=== PATIENT | female | born 1985 | race Caucasian/White ===

== ENCOUNTER 2016-08-17 16:11 | Emergency (ER) | payer OTHER ==
[~2016-08-17 16:11] MED LIST: PERCOCET1 TA4 PO; PRENATAL1 TAB PO; PROAIR HFA IN; ZOFRAN4 MG PO; [UNRECOGNIZED DRUG - OTHER] PO
--- NOTE | 2016-08-17 18:13 | ED ORDER SUMMARY ---
..... Patient: MARLEN ESCUDERO OrderSheet [facility] VisitID: [id number] [address] [place] [address] 31y, F Registration Date/Time: 08/17/2016 ORDER SHEET Weight: 79.3 kg (stated) Allergies: Amoxicillin GENERAL ORDERS: Foot 3V Right Urgent (17:23 08/17/2016 Debora Pate) ([facility] 17:30 [place]) MEDICATION ORDERS: IV FLUIDS: ORDER SHEET NOTES: [Electronically signed by Ashwini Kaur P.A.-C (18:27 08/17/2016)] [Electronically signed by Tammi Pop R.N. (10:36 08/29/2016)] [Electronically locked/signed by Tammi Pop R.N. (10:36 08/29/2016)]
--- NOTE | 2016-08-17 18:13 | ED ORDER SUMMARY ---
..... Patient: MARLEN ESCUDERO OrderSheet [facility] VisitID: [id number] [address] [place] [address] 31y, F Registration Date/Time: 08/17/2016 ORDER SHEET Weight: 79.3 kg (stated) Allergies: Amoxicillin GENERAL ORDERS: Foot 3V Right Urgent (17:23 08/17/2016 Debora Pate) ([facility] 17:30 [place]) MEDICATION ORDERS: IV FLUIDS: ORDER SHEET NOTES: [Electronically signed by Ashwini Kaur P.A.-C (18:27 08/17/2016)] [Electronically signed by Tammi Pop R.N. (10:36 08/29/2016)] [Electronically locked/signed by Tammi Pop R.N. (10:36 08/29/2016)]
--- NOTE | 2016-08-17 18:13 | ED NURSING NOTES ---
Clinical Report - Nurses [facility] [address] [place] [address] 08/17/2016 16:12 Patient: MARLEN ESCUDERO TRIAGE Triage time 17:25. Acuity: LEVEL 4. Chief Complaint: RIGHT LOWER EXTREMITY PAIN. 17:36 08/17/16. Alert. No acute distress. GERBER COMA SCORE: Crowder Coma Scale: 15- eyes open spontaneously (4); best verbal response- oriented x 4 (5); best motor response- obeys commands (6). --17:36 Nury Chandler R.N. 17:36 08/17/16. BP: 147/92. HR: 81. RR: 16. O2 saturation: 97%. Temp: 98.0 F. Pain level now 4/10. --17:36 Nury Chandler R.N. Weight: 79.3 kg stated. Height/Length: 60 inches Per Patient. BMI: 34.1. --17:32 Nury Chandler R.N. Medications Albuterol Sulfate Inhalation. --17:35 Nury Chandler R.N. Allergies Amoxicillin. --17:35 Nury Chandler R.N. History ( stepped on thumb tac at work (right heel), states she went to Dr ferrer's office and was seen by a nurse, Ivan up to date.). Injury occurred. This occurred (2 days ago). 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 PAST MEDICAL HX: Last normal menstrual period- 08/01. Denies current . SOCIAL HX: Heavy tobacco smoker (cigarette)- less than 1 pack per day. Occasional alcohol use. No drug use. FALL RISK ASSESSMENT: Fall risk assessment completed. No fall risk identified. NUTRITIONAL RISK ASSESSMENT: The nutritional risk assessment revealed no deficiencies. FUNCTIONAL ASSESSMENT: Functional assessment: no impairments noted. LEARNING NEEDS ASSESSMENT: The learning needs assessment revealed no barriers. SKIN INTEGRITY ASSESSMENT: Skin integrity risk assessment completed. No skin integrity risk identified. --17:36 Nury Chandler R.N. PROBLEMS: Gastroesophageal Reflux Disease. Sprain. Herpes Zoster. Cellulitis. Impetigo. Meningitis. Migraine Headache. Ovarian Cyst. Knee Injury. Allergic Reaction. . Tension-Type Headache. Headache. Pyelonephritis. Asthma. Immunizations. LNMP - Last Normal Menstrual Period. --17:35 Nury Chandler R.N. ADDITIONAL SURGERIES: Adenoidectomy. Fracture Repair. R foot. Tonsillectomy. --17:35 Nury Chandler R.N. Interventions ID band on patient. --17:36 Nury Chandler R.N. PHYSICAL ASSESSMENT Ambulatory to room. GENERAL / NEURO / PSYCH: Oriented X 4. Alert. Appears in no acute distress. EXTREMITIES: Extremities exhibit normal ROM. Neuro-vascular status intact to the extremity. No lower extremity edema. Normal gait. Right foot: tenderness and single puncture wound (small). No erythema, swelling or ecchymosis. SKIN: Skin intact. Skin is warm and dry. --17:36 Nury Chandler R.N. NURSING PROGRESS NOTES The plan of care for this patient has been created. Call light placed in reach. Bed placed in lowest position. Brakes of bed on. Patient ready for evaluation- chart flagged. --17:36 Nury Chandler R.N. DISPOSITION / DISCHARGE 18:26 08/17/16. Departure time: 1822. Condition at departure: unchanged and stable. No learning barriers present. Reviewed medication(s) side effects, precautions, dosing and course information. Prescription(s) given to the patient. Patient verbalized understanding. Written instructions provided in Bengali. The patient was discharged by the physician. She was discharged home. She left the Emergency Department ambulatory and via private vehicle. Patient driving. --18:26 Nury Chandler R.N. Locked/Released at 08/29/2016 10:36 by Tammi Pop R.N.
--- NOTE | 2016-08-17 18:13 | ED CLINICAL REPORT ---
Clinical Report - Physicians/Mid Levels [facility] [address] [place] [address] 08/17/2016 16:12 [id number] Time Seen: 17:24 Aug 17 2016. Arrived- By private vehicle. Historian- patient and family. HISTORY OF PRESENT ILLNESS Chief Complaint: Injury to the right foot. The injury happened just prior to arrival. 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 Patient is experiencing mild pain. (Prior to arrival, at work patient stepped on a small tack, tdap < 5 years, pain to area, believes she removed it. Denies any fevers/ chills.). REVIEW OF SYSTEMS The patient sustained a laceration. She complains of pain on weight bearing. All systems otherwise negative, except as recorded above. PAST HISTORY The patient has not had a prior injury to the same area. Tetanus immunization status is up-to-date. SOCIAL HISTORY Smoker- current status unknown. Alcohol use. No drug use. ADDITIONAL NOTES The nursing notes have been reviewed. PHYSICAL EXAM Vital Signs: 08/17/2016 17:36 BP: 147/92. HR: 81. RR: 16. O2 saturation: 97%. Temp: 98.0 F. Appearance: Alert. No acute distress. Head: Head atraumatic. CVS: Normal heart rate and rhythm. Heart sounds normal. Respiratory: No respiratory distress. Breath sounds normal. Skin: Skin warm. (small plantar puncture wound at calcaneous). Extremities: Right heel: of the calcaneus. (small spec of plantar wound noted, no erythema/ ecchyomosis/ bleeding). No tenderness, swelling, ecchymosis or puncture wound. Neuro, Vascular and Tendons: Vascular status intact. Motor intact. Neuro: Oriented X 3. LABS, X-RAYS, AND EKG Rt Foot X-ray: (IMPRESSION: 1. Normal right foot. Electronically Final signed by:Philippe Emery MD 08/17/2016 6:17:04 PM). PROGRESS AND PROCEDURES Course of Care: tdap up to date given plantar region of puncture, will cover with abx, otherwise no signs of fb, no early signs of infeciton. No swelling. Pt stable. TO f/u outpatient. Patient is stable. Symptoms better. Patient/family counseled. Disposition: Discharged. CLINICAL IMPRESSION Single superficial plantar puncture wound to the right foot.No foreign body, infection or injury to toenail. Treatment not delayed. INSTRUCTIONS Protect wound and keep wound area clean. Soak in warm soapy water daily. Apply bacitracin twice daily. You may walk and bear weight as tolerated. Prescription Medications: Bactrim DS 800 mg / 160 mg: Take 1 tablet orally every 12 hours for 7 days. Dispense fourteen (14). No refills. Substitution is permissible. OTC Medications: Take OTC medications according to label instructions. Available over the counter. Motrin (available over the counter): take according to label instructions. Follow-up: Follow up with your doctor Sunday for wound check. (Electronically signed by Ashwini Kaur P.A.-C 08/17/2016 18:27)
--- NOTE | 2016-08-17 18:13 | ED NURSING NOTES ---
Clinical Report - Nurses [facility] [address] [place] [address] 08/17/2016 16:12 Patient: MARLEN ESCUDERO TRIAGE Triage time 17:25. Acuity: LEVEL 4. Chief Complaint: RIGHT LOWER EXTREMITY PAIN. 17:36 08/17/16. Alert. No acute distress. GERBER COMA SCORE: Bovill Coma Scale: 15- eyes open spontaneously (4); best verbal response- oriented x 4 (5); best motor response- obeys commands (6). --17:36 Nury Chandler R.N. 17:36 08/17/16. BP: 147/92. HR: 81. RR: 16. O2 saturation: 97%. Temp: 98.0 F. Pain level now 4/10. --17:36 Nury Chandler R.N. Weight: 79.3 kg stated. Height/Length: 60 inches Per Patient. BMI: 34.1. --17:32 Nury Chandler R.N. Medications Albuterol Sulfate Inhalation. --17:35 Nury Chandler R.N. Allergies Amoxicillin. --17:35 Nury Chandler R.N. History ( stepped on thumb tac at work (right heel), states she went to Dr ferrer's office and was seen by a nurse, Ivan up to date.). Injury occurred. This occurred (2 days ago). 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 PAST MEDICAL HX: Last normal menstrual period- 08/01. Denies current . SOCIAL HX: Heavy tobacco smoker (cigarette)- less than 1 pack per day. Occasional alcohol use. No drug use. FALL RISK ASSESSMENT: Fall risk assessment completed. No fall risk identified. NUTRITIONAL RISK ASSESSMENT: The nutritional risk assessment revealed no deficiencies. FUNCTIONAL ASSESSMENT: Functional assessment: no impairments noted. LEARNING NEEDS ASSESSMENT: The learning needs assessment revealed no barriers. SKIN INTEGRITY ASSESSMENT: Skin integrity risk assessment completed. No skin integrity risk identified. --17:36 Nury Chandler R.N. PROBLEMS: Gastroesophageal Reflux Disease. Sprain. Herpes Zoster. Cellulitis. Impetigo. Meningitis. Migraine Headache. Ovarian Cyst. Knee Injury. Allergic Reaction. . Tension-Type Headache. Headache. Pyelonephritis. Asthma. Immunizations. LNMP - Last Normal Menstrual Period. --17:35 Nury Chandler R.N. ADDITIONAL SURGERIES: Adenoidectomy. Fracture Repair. R foot. Tonsillectomy. --17:35 Nury Chandler R.N. Interventions ID band on patient. --17:36 Nury Chandler R.N. PHYSICAL ASSESSMENT Ambulatory to room. GENERAL / NEURO / PSYCH: Oriented X 4. Alert. Appears in no acute distress. EXTREMITIES: Extremities exhibit normal ROM. Neuro-vascular status intact to the extremity. No lower extremity edema. Normal gait. Right foot: tenderness and single puncture wound (small). No erythema, swelling or ecchymosis. SKIN: Skin intact. Skin is warm and dry. --17:36 Nury Chandler R.N. NURSING PROGRESS NOTES The plan of care for this patient has been created. Call light placed in reach. Bed placed in lowest position. Brakes of bed on. Patient ready for evaluation- chart flagged. --17:36 Nury Chandler R.N. DISPOSITION / DISCHARGE 18:26 08/17/16. Departure time: 1822. Condition at departure: unchanged and stable. No learning barriers present. Reviewed medication(s) side effects, precautions, dosing and course information. Prescription(s) given to the patient. Patient verbalized understanding. Written instructions provided in Thai. The patient was discharged by the physician. She was discharged home. She left the Emergency Department ambulatory and via private vehicle. Patient driving. --18:26 Nury Chandler R.N. Locked/Released at 08/29/2016 10:36 by Tammi Pop R.N.
--- NOTE | 2016-08-17 18:13 | ED CLINICAL REPORT ---
Clinical Report - Physicians/Mid Levels [facility] [address] [place] [address] 08/17/2016 16:12 [id number] Time Seen: 17:24 Aug 17 2016. Arrived- By private vehicle. Historian- patient and family. HISTORY OF PRESENT ILLNESS Chief Complaint: Injury to the right foot. The injury happened just prior to arrival. 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 Patient is experiencing mild pain. (Prior to arrival, at work patient stepped on a small tack, tdap < 5 years, pain to area, believes she removed it. Denies any fevers/ chills.). REVIEW OF SYSTEMS The patient sustained a laceration. She complains of pain on weight bearing. All systems otherwise negative, except as recorded above. PAST HISTORY The patient has not had a prior injury to the same area. Tetanus immunization status is up-to-date. SOCIAL HISTORY Smoker- current status unknown. Alcohol use. No drug use. ADDITIONAL NOTES The nursing notes have been reviewed. PHYSICAL EXAM Vital Signs: 08/17/2016 17:36 BP: 147/92. HR: 81. RR: 16. O2 saturation: 97%. Temp: 98.0 F. Appearance: Alert. No acute distress. Head: Head atraumatic. CVS: Normal heart rate and rhythm. Heart sounds normal. Respiratory: No respiratory distress. Breath sounds normal. Skin: Skin warm. (small plantar puncture wound at calcaneous). Extremities: Right heel: of the calcaneus. (small spec of plantar wound noted, no erythema/ ecchyomosis/ bleeding). No tenderness, swelling, ecchymosis or puncture wound. Neuro, Vascular and Tendons: Vascular status intact. Motor intact. Neuro: Oriented X 3. LABS, X-RAYS, AND EKG Rt Foot X-ray: (IMPRESSION: 1. Normal right foot. Electronically Final signed by:Philippe Emery MD 08/17/2016 6:17:04 PM). PROGRESS AND PROCEDURES Course of Care: tdap up to date given plantar region of puncture, will cover with abx, otherwise no signs of fb, no early signs of infeciton. No swelling. Pt stable. TO f/u outpatient. Patient is stable. Symptoms better. Patient/family counseled. Disposition: Discharged. CLINICAL IMPRESSION Single superficial plantar puncture wound to the right foot.No foreign body, infection or injury to toenail. Treatment not delayed. INSTRUCTIONS Protect wound and keep wound area clean. Soak in warm soapy water daily. Apply bacitracin twice daily. You may walk and bear weight as tolerated. Prescription Medications: Bactrim DS 800 mg / 160 mg: Take 1 tablet orally every 12 hours for 7 days. Dispense fourteen (14). No refills. Substitution is permissible. OTC Medications: Take OTC medications according to label instructions. Available over the counter. Motrin (available over the counter): take according to label instructions. Follow-up: Follow up with your doctor Sunday for wound check. (Electronically signed by Ashwini Kaur P.A.-C 08/17/2016 18:27)
--- NOTE | 2016-08-17 18:13 | DIAGNOSTIC IMAGING REPORT ---
PROCEDURE: XR FOOT 3 VIEWS - RIGHT INDICATION: TRAUMA/INJURY TECHNIQUE: Three views. COMPARISON: None. FINDINGS: Osseous structures and joint spaces are normal. IMPRESSION: 1. Normal right foot.
--- NOTE | 2016-08-29 10:36 | ED MAR SUMMARY ---
..... Medication Administration Record [facility] [address], [place] [id number] Patient: MARLEN ESCUDERO Visit ID: [id number] 31y, F Weight: 79.3 kg Height/Length: 60 in BMI: 34.1 ALLERGIES: Amoxicillin
--- NOTE | 2016-08-29 10:36 | ED MED RECONCILIATION SUMMARY ---
Patient: MARLEN ESCUDERO Medication Reconciliation Report [facility] VisitID: [id number] [place] [address] 31y, F Registration Date/Time: 08/17/2016 Weight: 79.3 kg Height/Length: 60 in. BMI: 34.1 ALLERGIES: Amoxicillin The patient's Home Medications are listed below: THE FOLLOWING MEDICATIONS NEED TO BE RECONCILED: Albuterol Sulfate Inhalation The source(s) of the original Home Medication information: Not obtained. The following Medications were given to the patient in the Emergency Department: None. The following Medications were prescribed to the patient: Take OTC medications according to label instructions. Available over the counter. -- Ashwini Kaur, P.A.-C Motrin (available over the counter): take according to label instructions. -- Ashwini Kaur, P.A.-Leah Bactrim DS 800 mg / 160 mg: Take 1 tablet orally every 12 hours for 7 days. Dispense fourteen (14). No refills. Substitution is permissible. -- Ashwini Kaur, P.A.-C
--- NOTE | 2016-08-29 10:36 | ED MED RECONCILIATION SUMMARY ---
Patient: MARLEN ESCUDERO Medication Reconciliation Report [facility] VisitID: [id number] [place] [address] 31y, F Registration Date/Time: 08/17/2016 Weight: 79.3 kg Height/Length: 60 in. BMI: 34.1 ALLERGIES: Amoxicillin The patient's Home Medications are listed below: THE FOLLOWING MEDICATIONS NEED TO BE RECONCILED: Albuterol Sulfate Inhalation The source(s) of the original Home Medication information: Not obtained. The following Medications were given to the patient in the Emergency Department: None. The following Medications were prescribed to the patient: Take OTC medications according to label instructions. Available over the counter. -- Ashwini Kaur, P.A.-C Motrin (available over the counter): take according to label instructions. -- Ashwini Kaur, P.A.-Leah Bactrim DS 800 mg / 160 mg: Take 1 tablet orally every 12 hours for 7 days. Dispense fourteen (14). No refills. Substitution is permissible. -- Ashwini Kaur, P.A.-C
--- NOTE | 2016-08-29 10:36 | ED DISCHARGE INSTRUCTIONS ---
Patient: MARLEN ESCUDERO General Instructions [facility] VisitID: [id number] [place] [address] 31y, F Registration Date/Time: 08/17/2016 Single superficial plantar puncture wound to the right foot.No foreign body, infection or injury to toenail. Treatment not delayed. INSTRUCTIONS Protect wound and keep wound area clean. Soak in warm soapy water daily. Apply bacitracin twice daily. You may walk and bear weight as tolerated. Prescription Medications: Bactrim DS 800 mg / 160 mg: Take 1 tablet orally every 12 hours for 7 days. Dispense fourteen (14). No refills. Substitution is permissible. OTC Medications: Take OTC medications according to label instructions. Available over the counter. Motrin (available over the counter): take according to label instructions. Follow-up: Follow up with your doctor Sunday for wound check. ADDITIONAL INFORMATION Puncture Wound: Foot A puncture is a hole through the skin. Bacteria, dirt, and debris can be drawn into this wound, increasing the risk of infection. Antibiotics are usually not prescribed for this injury unless signs of infection are already present. Therefore, it is important to observe the wound closely for the signs of infection listed below. If you were wearing a rubber-soled shoe when the sharp object punctured your foot, there is a chance that bacteria (called "pseudomonas") from the sole of the shoe may be dragged into the wound and infect the skin, tendon or bone. This infection may start as late as 2-3 weeks after the injury. It is more serious and harder to treat than the common staph and strep skin infections, so follow the advice below. Home Care: Keep the foot raised during the first 24-48 hours to reduce swelling and pain. DO NOT BEAR WEIGHT on the injured foot if it hurts to do so. You may use acetaminophen (Tylenol) or ibuprofen (Motrin, Advil) to control pain, unless another medicine was prescribed. [NOTE: If you have chronic liver or kidney disease or ever had a stomach ulcer or GI bleeding, talk with your doctor before using these medicines.] You may shower as usual, but do not soak the wound in water (no baths or swimming) until the wound seals and there is no more drainage or bleeding. Keep the wound clean and dry. If a bandage was applied and it becomes wet or dirty, replace it. Otherwise, keep the wound covered until there is no more drainage or bleeding. Follow Up: Most puncture wounds heal within 10 days. However, an infection may sometimes occur despite proper treatment. If small particles were drawn into the puncture wound (such as fragments of cloth, rubber, wood or dirt), an infection may occur. These fragments are very hard to find during the first exam since it is not possible to get a good look inside a puncture wound and they do not show on an X-ray. Antibiotics and a minor surgical procedure to find and remove the foreign object will be needed if this happens. Over the next 2-3 weeks, check the wound daily for the warning signs listed below. If you are still having swelling or pain in the foot after two weeks, you should contact your doctor or return to this facility for an x-ray to look for an infection in the bone. [NOTE: Any X-rays taken will be reviewed by a radiologist. You will be notified of any new findings that may affect your care.] Get Prompt Medical Attention if any of the following occur: Increasing pain Foot becomes cold, blue, numb, or tingly Fever of 100.4F (38C) or higher, or as directed by your healthcare provider Redness, warmth, swelling or drainage from the wound Pain or swelling that lasts for two weeks You have been given the following additional information: Puncture Wound, Foot You may walk and bear weight as tolerated. (Electronically signed by Ashwini Kaur P.A.-C 08/17/2016 18:27)
--- NOTE | 2016-08-29 10:36 | ED MAR SUMMARY ---
..... Medication Administration Record [facility] [address] [place], [place] [id number] Patient: MARLEN ESCUDERO Visit ID: [id number] 31y, F Weight: 79.3 kg Height/Length: 60 in BMI: 34.1 ALLERGIES: Amoxicillin
== END 2016-08-17 18:22 | disposition home or self-care (01) ==
LOC: ED SRH 16:11
DX: S91.331A Puncture wound without foreign body, right foot, initial encounter (principal); W22.8XXA Striking against or struck by other objects, initial encounter; Y92.89 Other specified places as the place of occurrence of the external cause; Y99.0 Civilian activity done for income or pay; K21.9 Gastro-esophageal reflux disease without esophagitis; J45.909 Unspecified asthma, uncomplicated; Z79.899 Other long term (current) drug therapy; Z88.1 Allergy status to other antibiotic agents

== ENCOUNTER 2016-08-25 16:04 | Outpatient (CLI) | payer OTHER ==
--- NOTE | 2016-08-25 16:39 | DIAGNOSTIC IMAGING REPORT ---
PROCEDURE: XR CERVICAL SPINE 4 OR 5 VIEW INDICATION: ARM PAIN TECHNIQUE: Five views. COMPARISON: None. FINDINGS: Osseous structures and disc spaces are normal. No evidence of an acute process or fracture. Neural foramina are normal. IMPRESSION: 1. Negative cervical spine.
== END 2016-08-25 23:00 ==
LOC: XR SRH 16:04
DX: M79.602 Pain in left arm (principal)

== ENCOUNTER 2017-02-17 13:39 | Emergency (ER) | payer OTHER ==
--- NOTE | 2017-02-17 14:30 | DIAGNOSTIC IMAGING REPORT ---
PROCEDURE: XR CHEST 1 VIEW INDICATION: SOB TECHNIQUE: Portable AP view 02:19 p.m. COMPARISON: Chest x-ray 12/16/2013. FINDINGS: Lungs are clear. Heart and mediastinum are normal. Thorax is normal. No significant interval change. IMPRESSION: 1. Negative chest.
--- NOTE | 2017-02-17 16:27 | ED ORDER SUMMARY ---
..... Patient: MARLEN ESCUDERO OrderSheet [facility] VisitID: [id number] [place] [address] 31y, F Registration Date/Time: 02/17/2017 ORDER SHEET Weight: 70.3 kg (stated) Allergies: Amoxicillin GENERAL ORDERS: CBC w Diff Urgent (13:57 02/17/2017 Pennie ALBERTO) (Ack 14:03 Melvin) (14:43 KPage-Kuchan R.N.) CMP Urgent (13:57 02/17/2017 Pennie ALBERTO) (Ack 14:03 Melvin) (14:43 KPage-Kuchan R.N.) UA-Culture if indicated Urgent (13:57 02/17/2017 Pennie ALBERTO) (Ack 14:03 Melvin) (16:28 KWilliams R.N.) PT with INR Urgent (13:57 02/17/2017 Pennie ALBERTO) (Ack 14:03 Melvin) (14:43 KPage-Kuchan R.N.) PTT Urgent (13:57 02/17/2017 Pennie ALBERTO) (Ack 14:03 Melvin) (14:43 KPage-Kuchan R.N.) D-Dimer Urgent (13:57 02/17/2017 Pennie ALBERTO) (Ack 14:03 Melvin) (14:43 KPage-Kuchan R.N.) Amylase Urgent (13:57 02/17/2017 Pennie ALBERTO) (Ack 14:03 Melvin) (14:43 KPage-Kuchan R.N.) Lipase Urgent (13:57 02/17/2017 Pennie ALBERTO) (Ack 14:03 Melvin) (14:43 KPage-Kuchan R.N.) CPK Urgent (13:57 02/17/2017 Pennie ALBERTO) (Ack 14:04 Melvin) (14:43 KPage-Kuchan R.N.) Troponin-I Urgent (13:57 02/17/2017 Pennie ALBERTO) (Ack 14:04 Melvin) (14:43 KPage-Kuchan R.N.) Urine Urgent (13:57 02/17/2017 Pennie ALBERTO) (Ack 14:04 Melvin) (16:28 Ollie Chacon) Chest 1V Urgent (13:58 02/17/2017 Pennie ALBERTO) (Ack 14:07 Melvin) (14:39 Ricky) MEDICATION ORDERS: IV FLUIDS: IV Saline Lock (13:57 02/17/2017 Pennie ALBERTO) (14:12 Nova Archer.NColleen) Dilaudid IV 0.5 mg (HIGH ALERT MEDICATION, NOW) (14:26 02/17/2017 Pennie ALBERTO) (14:43 Lily Chacon) Zofran IV 4 mg (NOW) (14:26 02/17/2017 Pennie ALBERTO) (14:42 Lily Chacon) ORDER SHEET NOTES: [Electronically signed by Pablo English MD (16:54 02/17/2017)] [Electronically signed by Brian Reeves R.N. (23:38 02/17/2017)] [Electronically locked/signed by Brian Reeves R.N. (23:38 02/17/2017)]
--- NOTE | 2017-02-17 16:27 | ED ORDER SUMMARY ---
..... Patient: MARLEN ESCUDERO OrderSheet [facility] VisitID: [id number] [place] [address] 31y, F Registration Date/Time: 02/17/2017 ORDER SHEET Weight: 70.3 kg (stated) Allergies: Amoxicillin GENERAL ORDERS: CBC w Diff Urgent (13:57 02/17/2017 Pennie ALBERTO) (Ack 14:03 Melvin) (14:43 KPage-Kuchan R.N.) CMP Urgent (13:57 02/17/2017 Pennie ALBERTO) (Ack 14:03 Melvin) (14:43 KPage-Kuchan R.N.) UA-Culture if indicated Urgent (13:57 02/17/2017 Pennie ALBERTO) (Ack 14:03 Melvin) (16:28 KWilliams R.N.) PT with INR Urgent (13:57 02/17/2017 Pennie ALBERTO) (Ack 14:03 Melvin) (14:43 KPage-Kuchan R.N.) PTT Urgent (13:57 02/17/2017 Pennie ALBERTO) (Ack 14:03 Melvin) (14:43 KPage-Kuchan R.N.) D-Dimer Urgent (13:57 02/17/2017 Pennie ALBERTO) (Ack 14:03 Melvin) (14:43 KPage-Kuchan R.N.) Amylase Urgent (13:57 02/17/2017 Pennie ALBERTO) (Ack 14:03 Melvin) (14:43 KPage-Kuchan R.N.) Lipase Urgent (13:57 02/17/2017 Pennie ALBERTO) (Ack 14:03 Melvin) (14:43 KPage-Kuchan R.N.) CPK Urgent (13:57 02/17/2017 Pennie ALBERTO) (Ack 14:04 Melvin) (14:43 KPage-Kuchan R.N.) Troponin-I Urgent (13:57 02/17/2017 Pennie ALBERTO) (Ack 14:04 Melvin) (14:43 KPage-Kuchan R.N.) Urine Urgent (13:57 02/17/2017 Pennie ALBERTO) (Ack 14:04 Melvin) (16:28 Ollie Chacon) Chest 1V Urgent (13:58 02/17/2017 Pennie ALBERTO) (Ack 14:07 Melvin) (14:39 iRcky) MEDICATION ORDERS: IV FLUIDS: IV Saline Lock (13:57 02/17/2017 Pennie ALBERTO) (14:12 Nova Archer.NColleen) Dilaudid IV 0.5 mg (HIGH ALERT MEDICATION, NOW) (14:26 02/17/2017 Pennie ALBERTO) (14:43 Lily Chacon) Zofran IV 4 mg (NOW) (14:26 02/17/2017 Pennie ALBERTO) (14:42 Lily Chacon) ORDER SHEET NOTES: [Electronically signed by Pablo English MD (16:54 02/17/2017)] [Electronically signed by Brian Reeves R.N. (23:38 02/17/2017)] [Electronically locked/signed by Brian Reeves R.N. (23:38 02/17/2017)]
--- NOTE | 2017-02-17 16:27 | ED CLINICAL REPORT ---
Clinical Report - Physicians/Mid Levels [facility] [address] [place] [address] 02/17/2017 13:43 Patient: MARLEN ESCUDERO Time Seen: 13:57. Arrived- By private vehicle. Historian- patient. HISTORY OF PRESENT ILLNESS Chief Complaint: DYSPNEA. This started today and is still present. It was abrupt in onset and has been constant. The dyspnea is described as moderate. No cough, sputum production, sweating episodes or wheezing. She has had chest pain. (The patient underwent left ACL repair 3 days ago at [facility]. Surgery was performed by Dr. Regalado. She has had pain in the left leg that is generally well treated with her pain medication. However she did not take that this morning. She does report a new pain in the upper part of her thigh. She has been wearing tension stockings on her legs. Her left leg has been in a dressing with a brace.). REVIEW OF SYSTEMS No chills, fever, sweats, abdominal pain or constipation. No diarrhea, nausea, vomiting or urinary problems. All systems otherwise negative, except as recorded above. SOCIAL HISTORY Current every day heavy tobacco smoker (cigarette)- less than 1 pack per day. Occasional alcohol use. No drug use. FAMILY HISTORY she denies a family history of deep vein thrombosis or pulmonary embolism. ADDITIONAL NOTES The nursing notes have been reviewed. PHYSICAL EXAM Vital Signs: 02/17/2017 13:50 BP: 146/94. HR: 72. RR: 24. O2 saturation: 100%. Temp: 97.8 F. Have been reviewed. Appearance: Alert. Eyes: Pupils equal, round and reactive to light. ENT: Pharynx normal. Neck: Normal inspection. No jugular venous distention. CVS: Normal heart rate and rhythm. Heart sounds normal. Respiratory: No respiratory distress. Mild sternal tenderness and right costochondral tenderness. Breath sounds normal. Abdomen: Soft and nontender. No organomegaly. Back: Normal inspection. Skin: Skin warm and dry. No rash. Extremities: Extremities exhibit normal ROM. Left thigh: moderate tenderness located in the anterior aspect of upper and mid thigh. Left knee. (the patient's tension stocking and surgical dressings were removed. She has well-healing surgical wounds around the left knee there is no erythema or increased warmth or tenderness at that site.). Right leg. No tenderness. LABS, X-RAYS, AND EKG EKG: Normal EKG. Rate: 65. EKG unchanged when compared with prior EKG. (09 Apr 2015). The study has been independently viewed by me. Chest X-ray: (IMPRESSION: 1. Negative chest.). The X-rays were interpreted by the radiologist and contemporaneously by me. Laboratory Tests: CBC w Diff: (ZOEY: 02/17/2017 14:00) ( MsgRcvd 02/17/2017 14:31) Final results Test Result Flag Units (Reference) WHITE BLOOD COUNT 7.7 K/uL (4.5-11.5) RED BLOOD COUNT 4.92 M/uL (4.00-5.20) HEMOGLOBIN 14.9 gm/dL (12.0-16.0) HEMATOCRIT 43.6 % (36.0-46.0) MEAN CELL VOLUME 89 fL (80-100) MEAN CORPUSCULAR HGB 30 pg (26-34) MEAN CORPUSCULAR HGB CONC 34 g/dL (31-37) RED CELL DISTRIBUTION WIDTH 12.3 % (11.6-14.8) PLATELET COUNT 222 K/uL (150-400) NEUTROPHIL % 57.7 % (50-75) LYMPH % 28.6 % (25-40) MONO % 8.9 % (3-14) EOSINOPHIL % 4.2 H % (0-4) BASOPHIL % 0.6 % (0-2) PT with INR: (ZOEY: 02/17/2017 14:00) ( MsgRcvd 02/17/2017 14:42) Final results Test Result Flag Units (Reference) INR 0.9 (0.8-1.2) Low Intensity Therapy: INR 1.5-2.0 PT range 18.5-23.1Mod.Intensity Therapy: INR 2.0-3.0 PT range 23.1-31.5High Intensity Therapy: INR 2.5-3.5 PT range 27.4-35.5High Intensity Therapy 2: INR 3.0-4.0 PT range 31.5-39.3 APTT 28 SECONDS (24-34) D-DIMER QUANTITATIVE 0.35 ug/mLFEU (0.27-0.52) The primary value of this quantitative assay relates toits negative predictive value (i.e. exclusion) of pulmonaryembolism/deep vein thrombosis/DIC.Elevated levels of d-dimer may also occur with:, age, cancer, inflammation, liver disease,post-op, infection, hematoma, coronary disease, peripheralarteriopathy, bleeding disorders and thrombolytic treatment.Results should be correlated with other clinical andradiological data.Testing Methodology: Latex Immunoassay CMP: (ZOEY: 02/17/2017 14:00) ( MsgRcvd 02/17/2017 14:38) IP Test Result Flag Units (Reference) GLUCOSE 87 mg/dL (70-110) BUN 9 mg/dL (7-18) CREATININE 0.6 mg/dL (0.6-1.3) Estimated GFR >60 mL/min Estimated GFR- >60 mL/min Note: Persistent reduction over 3 months in eGFR<60 mL/min/1.73 m2 defines CKD. Patients with eGFR values>=60 mL/min/1.73 m2 may also have CKD if evidence ofpersistent proteinuria. Additional information may be foundat www.[email or web address].org. SODIUM 143 mmol/L (136-145) POTASSIUM 3.9 mmol/L (3.5-5.1) CHLORIDE 106 mmol/L (98-107) CARBON DIOXIDE 29 mmol/L (21-32) TOTAL PROTEIN 6.8 g/dL (6.4-8.2) ALBUMIN 3.5 g/dL (3.3-5.0) BILIRUBIN, TOTAL 0.3 mg/dL (0.0-1.0) ALKALINE PHOSPHATASE 62 U/L (46-116) AST (SGOT) 17 U/L (15-37) ALT (SGPT) 17 U/L (12-78) LIPASE 75 U/L (73-393) AMYLASE 74 U/L (25-115) CPK 108 U/L (24-260) TROPONIN I <0.05 L ng/mL (0.00-1.5) TROPONIN REFERENCE RANGE:<0.1 NEGATIVE0.1-1.5 INDETERMINANT>1.5 POSITIVE . PROGRESS AND PROCEDURES Course of Care: Patient is stable. Consult obtained from orthopedics. for Dr. Regalado. Case discussed. Phone consult only. Patient/family counseled. Old medical records reviewed. Disposition: Discharged. Condition: stable. CLINICAL IMPRESSION Chest pain. status post left ACL repair - healing well. INSTRUCTIONS No driving or operating machinery while taking medication. Sedative medication was given during your visit. Warnings: Further evaluation is necessary. GENERAL WARNINGS: Return or contact your physician immediately if your condition worsens or changes unexpectedly, if not improving as expected, or if other problems arise. Your Current Medications: CONTINUE TAKING THE FOLLOWING MEDICATIONS: Albuterol Sulfate Inhalation. Aspirin Oral : Tablet 81 mg, 1 tablet daily. Docusate Calcium Oral. Keflex Oral. Vicodin Oral : 5 mg, prn, last taken at 0600. Follow-up: Follow up with a specialist Dr. Regalado Sunday in two days. Call for an appointment. Understanding of the discharge instructions verbalized by patient. (Electronically signed by Pablo English MD 02/17/2017 16:54)
--- NOTE | 2017-02-17 16:27 | ED NURSING NOTES ---
Clinical Report - Nurses Merged With [facility] [address] [place] [address] 02/17/2017 13:43 Patient: MARLEN ESCUDERO TRIAGE Triage time 13:50. Acuity: LEVEL 2. Chief Complaint: SHORTNESS OF BREATH and (chest tightness). Alert. No acute distress. SEPSIS SCREEN: Sepsis Screen. Negative (no infection suspected/documented). Heart rate not greater than 90. Respiratory rate not greater than 20. --13:56 Nury Chandler R.N. 13:50 02/17/17. BP: 146/94. HR: 72. RR: 24. O2 saturation: 100% on room air. Temp: 97.8 F (oral). Pain level now 8/10. --13:56 Nury Chandler R.N. GERBER COMA SCORE: [place] Coma Scale: 15- eyes open spontaneously (4); best verbal response- oriented x 4 (5); best motor response- obeys commands (6). --13:56 Nury Chandler R.N. Weight: 70.3 kg stated. Height/Length: 60 inches Per Patient. BMI: 30.3. --13:52 Nury Chandler R.N. Medications Vicodin Oral 5 mg, as needed (last taken at 0600). --13:53 Nury Chandler R.N. Aspirin Oral (Tablet 81 mg) 1 tablet, daily. --13:53 Nury Chandler R.N. Keflex Oral. --13:54 Nury Chandler R.N. Albuterol Sulfate Inhalation. --13:54 Nury Chandler R.N. Docusate Calcium Oral. --13:55 Nury Chandler R.N. Allergies Amoxicillin. --13:54 Nury Chandler R.N. Medication/allergy information source: the patient. --13:56 Nury Chandler R.N. History Primary physician (nabil). ( gradual onset shortness of breath and chest tightness today at 1100. Post op day 3 following ACL surgery left leg.). This started today. Treatment LITIGATION MANAGER: None. PAST MEDICAL HX: Last normal menstrual period was 1 week ago. Denies current . SOCIAL HX: Heavy tobacco smoker (cigarette)- less than 1 pack per day. Occasional alcohol use. No drug use. ABUSE ASSESSMENT: Abuse assessment: The patient was asked "Do you feel safe in your home?". No report of abuse. SELF HARM ASSESSMENT: A self harm assessment was performed. The patient answered "no" to the question "Do you have thoughts of harming or killing yourself?" and "Have you recently had thoughts about harming or killing others?". FALL RISK ASSESSMENT: Fall risk assessment completed. No fall risk identified. NUTRITIONAL RISK ASSESSMENT: The nutritional risk assessment revealed no deficiencies. FUNCTIONAL ASSESSMENT: Functional assessment: no impairments noted. LEARNING NEEDS ASSESSMENT: The learning needs assessment revealed no barriers. SKIN INTEGRITY ASSESSMENT: Skin integrity risk assessment completed. No skin integrity risk identified. --13:56 Nury Chandler R.N. PROBLEMS: Plantar Puncture Wound. Gastroesophageal Reflux Disease. Sprain. Cellulitis. Impetigo. Meningitis. Migraine Headache. Ovarian Cyst. Knee Injury. Allergic Reaction. UTI - Urinary Tract Infection. . Tension-Type Headache. Headache. Pyelonephritis. Polycystic Kidney. Asthma. --13:55 Nury Chandler R.N. ADDITIONAL SURGERIES: Adenoidectomy. Fracture Repair. Left ACL repair. R foot. Tonsillectomy. --13:55 Nury Chandler R.N. Interventions ID band on patient. To treatment room. --13:56 Nury Chandler R.N. NURSING PROGRESS NOTES 14:12 02/17/2017 Site #1 started via IV in the right with an 22g angiocath, with aseptic technique and good blood return; one attempt. Blood drawn: rainbow set. Labeled in the presence of the patient and sent to the lab. Saline lock flushed. --14:12 Vanessa Hardy R.N. EKG time: (1355). EKG was ordered, performed by a tech and shown to the ED physician. --14:15 Paty Hodgson 14:27 02/17/2017 Zofran (Ondansetron HCl) IVP 4 mg given. via site #1. Allergies verified and confirmed 5 rights. IV patency established. IV site checked: no pain, redness, or swelling. IV flushed thoroughly pre- and post-medication administration. IVP given by RN. --14:42 Brian Reeves R.N. 14:27 02/17/2017 Dilaudid (HYDROmorphone HCl PF) IVP 0.5 mg given. via site #1. Allergies verified, confirmed 5 rights and sedative warning given to the patient. IV patency established. IV site checked: no pain, redness, or swelling. IV flushed thoroughly pre- and post-medication administration. IVP given by RN. --14:43 Brian Reeves R.N. 14:57 02/17/2017 Dilaudid (HYDROmorphone HCl PF) IVP 0.5 mg given. via site #1. Allergies verified, confirmed 5 rights and sedative warning given to the patient. IV patency established. IV site checked: no pain, redness, or swelling. IV flushed thoroughly pre- and post-medication administration. IVP given by RN. --15:07 Brian Reeves R.N. ( per ok to give 0.5mg dilaudid ivp every 15 minutes from first dose up to total of 2mg dilaudid.). --15:08 Brian Reeves R.N. 14:49 02/17/17. BP: 124/73. HR: 71. RR: 21. O2 saturation: 98%. Pain level now: 01/13. --15:09 Brian Reeves R.N. Call light placed in reach. Side rails up x 2. Bed placed in lowest position. Brakes of bed on. --15:09 Brian Reeves R.N. ( dressing to left lower extremity removed with assist of , incision sites c/d/i, no drainage, leg remains in straight position with use of brace and pillows, +pedal pulse). --15:10 Brian eReves R.N. 16:01 02/17/2017 Dilaudid (HYDROmorphone HCl PF) IVP 0.5 mg given. via site #1. Allergies verified, confirmed 5 rights and sedative warning given to the patient. IV patency established. IV site checked: no pain, redness, or swelling. IV flushed thoroughly pre- and post-medication administration. IVP given by RN. --16:06 Brian Reeves R.N. ( MD ok for pt to have dressing applied and immobilizer back on- unable to place sandrita hose back on even with MD assist due to pt discomfort. per pt "I was only supposed to wear them 4 days anyways" pts leg redressed as taken down and per MD with assist of Citlaly PA). --16:07 Brian Reeves R.N. ( pt up to bathroom using crutches). --16:08 Brian Reeves R.N. DISPOSITION / DISCHARGE No learning barriers present. Discharge instructions provided and reviewed with the patient and spouse. Patient verbalized understanding. Written instructions provided in Sudanese. The patient was discharged by the physician. She was discharged home and accompanied by spouse. She left the Emergency Department ambulatory on crutches and via private vehicle. Spouse driving. --16:46 Brian Reeves R.N. 16:45 02/17/17. BP: 116/71. HR: 69. RR: 19. O2 saturation: 100%. Temp: deferred. Pain level now: 11/13. --16:46 Brian Reeves R.N. Locked/Released at 02/17/2017 23:38 by Brian Reeves R.N.
--- NOTE | 2017-02-17 23:39 | ED DISCHARGE INSTRUCTIONS ---
Patient: MARLEN ESCUDERO General Instructions [facility] VisitID: [id number] [place] [address] 31y, F Registration Date/Time: 02/17/2017 Chest pain. status post left ACL repair - healing well. INSTRUCTIONS No driving or operating machinery while taking medication. Sedative medication was given during your visit. Warnings: Further evaluation is necessary. GENERAL WARNINGS: Return or contact your physician immediately if your condition worsens or changes unexpectedly, if not improving as expected, or if other problems arise. Your Current Medications: CONTINUE TAKING THE FOLLOWING MEDICATIONS: Albuterol Sulfate Inhalation. Aspirin Oral : Tablet 81 mg, 1 tablet daily. Docusate Calcium Oral. Keflex Oral. Vicodin Oral : 5 mg, prn, last taken at 0600. Follow-up: Follow up with a specialist Dr. Regalado Sunday in two days. Call for an appointment. Understanding of the discharge instructions verbalized by patient. ADDITIONAL INFORMATION Chest Wall Pain: Costochondritis The chest pain that you have had today is caused by Costochondritis. This condition is due to an inflammation of the cartilage joining the ribs to the breastbone. It is not caused by heart or lung problems. Although the exact cause for costochondritis is not known, it often occurs during times of emotional stress. It can be painful, but it is not dangerous. It usually disappears within one to two weeks, but may recur. Rarely, a more serious condition may cause symptoms similar to costochondritis; therefore, watch for the warning signs listed below. Home Care: If you feel that emotional stress is a cause of your condition, try to identify sources of that stress. It may not be obvious! Learn ways to deal with the stress in your life such as regular exercise, muscle relaxation, meditation, or simply taking time out for yourself. For more information about this, consult your doctor or go to a local bookstore and review books and tapes available on the subject of stress reduction. You may use acetaminophen (Tylenol) or ibuprofen (Motrin, Advil) to control pain, unless another pain medicine was prescribed. [ NOTE: If you have liver disease or ever had a stomach ulcer, talk with your doctor before using these medicines.] The use of heat (hot wet compress or heating pad) with or without local analgesic creams (Deep Heat Rub, Samir Owens) will be helpful to reduce pain. Follow Up with your doctor as directed or sooner if you do not start to improve within the next two days. Get Prompt Medical Attention if any of the following occur: A change in the type of pain: if it feels different, becomes more severe, lasts longer, or spreads into your shoulder, arm, neck, jaw or back Shortness of breath or increased pain with breathing Weakness, dizziness, or fainting Cough with dark colored sputum (phlegm) or blood Abdominal pain Dark red or black stools Fever of 100.4F (38C) or higher, or as directed by your healthcare provider You have been given the following additional information: Chest Wall Pain, Costochondritis No driving or operating machinery while taking medication. Sedative medication was given during your visit. (Electronically signed by Pablo English MD 02/17/2017 16:54)
--- NOTE | 2017-02-17 23:39 | ED MAR SUMMARY ---
..... Medication Administration Record [facility] [address] [place] [address] Patient: MARLEN ESCUDERO Visit ID: [id number] 31y, F Weight: 70.3 kg Height/Length: 60 in BMI: 30.3 ALLERGIES: Amoxicillin Given 14:02/17/2017 Brian Reeves R.N. Medication Administered: DILAUDID [IVP] (HYDROMORPHONE HCL PF), Dose: 0.5 mg IVP, Site: #1 right. Medication Ordered: Dilaudid IV 0.5 mg (HIGH ALERT MEDICATION, NOW). Given 14:02/17/2017 Brian Reeves R.N. Medication Administered: ZOFRAN [IVP] (ONDANSETRON HCL), Dose: 4 mg IVP, Site: #1 right. Medication Ordered: Zofran IV 4 mg (NOW). Given 14:02/17/2017 Brian Reeves R.N. Medication Administered: DILAUDID [IVP] (HYDROMORPHONE HCL PF), Dose: 0.5 mg IVP, Site: #1 right. Medication Ordered: Dilaudid IV 0.5 mg (HIGH ALERT MEDICATION, NOW). Given 16:02/17/2017 Brian Reeves R.N. Medication Administered: DILAUDID [IVP] (HYDROMORPHONE HCL PF), Dose: 0.5 mg IVP, Site: #1 right. Medication Ordered: Dilaudid IV 0.5 mg (HIGH ALERT MEDICATION, NOW).
--- NOTE | 2017-02-17 23:39 | ED MAR SUMMARY ---
..... Medication Administration Record [facility] [address] [place] [address] Patient: MARLEN ESCUDERO Visit ID: [id number] 31y, F Weight: 70.3 kg Height/Length: 60 in BMI: 30.3 ALLERGIES: Amoxicillin Given 14:02/17/2017 Brian Reeves R.N. Medication Administered: DILAUDID [IVP] (HYDROMORPHONE HCL PF), Dose: 0.5 mg IVP, Site: #1 right. Medication Ordered: Dilaudid IV 0.5 mg (HIGH ALERT MEDICATION, NOW). Given 14:02/17/2017 Brian Reeves R.N. Medication Administered: ZOFRAN [IVP] (ONDANSETRON HCL), Dose: 4 mg IVP, Site: #1 right. Medication Ordered: Zofran IV 4 mg (NOW). Given 14:02/17/2017 Brian Reeves R.N. Medication Administered: DILAUDID [IVP] (HYDROMORPHONE HCL PF), Dose: 0.5 mg IVP, Site: #1 right. Medication Ordered: Dilaudid IV 0.5 mg (HIGH ALERT MEDICATION, NOW). Given 16:02/17/2017 Brian Reeves R.N. Medication Administered: DILAUDID [IVP] (HYDROMORPHONE HCL PF), Dose: 0.5 mg IVP, Site: #1 right. Medication Ordered: Dilaudid IV 0.5 mg (HIGH ALERT MEDICATION, NOW).
--- NOTE | 2017-02-17 23:39 | ED MED RECONCILIATION SUMMARY ---
Patient: MARLEN ESCUDERO Medication Reconciliation Report [facility] VisitID: [id number] [address] [place] [address] 31y, F Registration Date/Time: 02/17/2017 Weight: 70.3 kg Height/Length: 60 in. BMI: 30.3 ALLERGIES: Amoxicillin The patient's Home Medications are listed below: CONTINUE TAKING THE FOLLOWING MEDICATIONS: Albuterol Sulfate Inhalation Aspirin Oral (81 mg) 1 tablet, daily Docusate Calcium Oral Keflex Oral Vicodin Oral 5 mg, last taken at 0600 The source(s) of the original Home Medication information: patient The following Medications were given to the patient in the Emergency Department: Zofran [IVP] IVP 4 mg, administered: 02/17/2017 2:27:00 PM Dilaudid [IVP] IVP 0.5 mg, administered: 02/17/2017 2:27:00 PM Dilaudid [IVP] IVP 0.5 mg, administered: 02/17/2017 2:57:00 PM Dilaudid [IVP] IVP 0.5 mg, administered: 02/17/2017 4:01:00 PM The following Medications were prescribed to the patient: None.
--- NOTE | 2017-02-17 23:39 | ED MED RECONCILIATION SUMMARY ---
Patient: MARLEN ESCUDERO Medication Reconciliation Report [facility] VisitID: [id number] [address] [place] [address] 31y, F Registration Date/Time: 02/17/2017 Weight: 70.3 kg Height/Length: 60 in. BMI: 30.3 ALLERGIES: Amoxicillin The patient's Home Medications are listed below: CONTINUE TAKING THE FOLLOWING MEDICATIONS: Albuterol Sulfate Inhalation Aspirin Oral (81 mg) 1 tablet, daily Docusate Calcium Oral Keflex Oral Vicodin Oral 5 mg, last taken at 0600 The source(s) of the original Home Medication information: patient The following Medications were given to the patient in the Emergency Department: Zofran [IVP] IVP 4 mg, administered: 02/17/2017 2:27:00 PM Dilaudid [IVP] IVP 0.5 mg, administered: 02/17/2017 2:27:00 PM Dilaudid [IVP] IVP 0.5 mg, administered: 02/17/2017 2:57:00 PM Dilaudid [IVP] IVP 0.5 mg, administered: 02/17/2017 4:01:00 PM The following Medications were prescribed to the patient: None.
== END 2017-02-17 16:41 | disposition home or self-care (01) ==
LOC: ED SRH 13:39
DX: R07.9 Chest pain, unspecified (principal); J45.909 Unspecified asthma, uncomplicated; G43.909 Migraine, unspecified, not intractable, without status migrainosus; K21.9 Gastro-esophageal reflux disease without esophagitis; Z79.82 Long term (current) use of aspirin; Z79.2 Long term (current) use of antibiotics; Z79.899 Other long term (current) drug therapy; F17.210 Nicotine dependence, cigarettes, uncomplicated; Z88.0 Allergy status to penicillin
CPT/HCPCS: 90004; 90100; 90616; 91556; 92235; 92530; 92610; 93070; 94001; 94060; 95059